=== PATIENT | female | born 1960 | race Caucasian/White ===

== ENCOUNTER → 2024-07-04 | Outpatient (CLI) | payer OTHER ==
--- NOTE | 2024-07-04 15:21 | NM ---
EXAMINATION TYPE: NM bone scan whole body DATE OF EXAM: 07/04/2024 COMPARISON: Radiograph 06/19/2024 CLINICAL INDICATION: Female, 63 years old with history of M47.817 M54.51 M54.16 back pain; Technique: Delayed whole-body scanning was performed following the injection of 24.4 mCi Tc 99m MDP. Images acquired 5.5 hours post injection. FINDINGS: There is mild degenerative tracer activity in both shoulders and sternoclavicular joints. Some subtle foci of increased activity along the bilateral lower anterior rib ends. There is a band of abnormal increased activity involving the L1 vertebral body. No suspicious distribution of tracer activity otherwise seen throughout the skeleton. IMPRESSION: 1. Abnormal activity involving the L1 vertebral body suggestive of an acute to subacute vertebral com pression fracture. 2. Scattered degenerative tracer activity particularly in the shoulders and sternoclavicular joints. 3. Increased activity involving the bilateral lower anterior rib ends may be sequela of costochondrit is or prior injuries. Clinically correlate. [facility], , 07/04/2024 3:18 PM
== END | disposition home or self-care (01) ==
LOC: RADNMMAIN 07:13
PROVIDERS: ATTEND Physical Medicine & Rehabilitation
DX: M47.26 Other spondylosis with radiculopathy, lumbar region (principal)
CPT/HCPCS: 78306